=== PATIENT | male | born 1955 | race Caucasian/White ===

== ENCOUNTER 2018-06-02 08:29 | Inpatient (IN) | payer BC ==
[2018-05-29 12:29] LABS: Basophils # (auto) 0 uL; Basophils % (auto) 0.5 % (0.0-2.0); Eosinophils # (auto) 0.2 uL; Eosinophils % (auto) 2.5 % (0.0-7.0); Hematocrit 44.4 % (41.0-53.0); Hemoglobin 15.1 g/dL (13.5-17.5); Lymphocytes # (auto) 1.9 uL; Lymphocytes % (auto) 23.1 % (10.0-50.0); Mean Corpuscular Hemoglobin 32.8 pg (28.0-32.0); Mean Corpuscular Volume 96.5 fL (80.0-100.0); Monocytes # (auto) 0.6 uL; Neutrophils # (auto) 5.4 uL; Neutrophils % (auto) 65.9 % (37.0-80.0); Nucleated Red Blood Cells % 0.1 %; Platelet Count (auto) 267 10^3/uL (140-450); Red Cell Distribution Width 13.1 % (11.8-14.3); White Blood Cell 8.1 10^3/uL (4.4-10.8)
[2018-05-29 12:33] LABS: Urine Bacteria NONE SEEN /hpf (None Seen); Urine Blood Negative /uL (Negative); Urine Mucus FEW (None Seen); Urine Specific Gravity 1.025 (1.001-1.035); Urine WBC 1 /hpf (0 - 3)
[2018-05-29 12:44] LABS: INR 0.96 (0.9-1.15); Prothrombin Time 10.3 sec (9.27-12.13)
[2018-05-29 13:09] LABS: Potassium 3.8 mmol/L (3.5-5.1)
[2018-05-29 13:19] LABS: Albumin 3.9 g/dL (3.4-5.0); BUN/Creatinine Ratio 19.6; Bilirubin, Total 0.4 mg/dL (0.2-1.0); Total Protein 7.5 g/dL (6.4-8.2)
[~2018-06-02] VITALS: Ht 167.6 cm; Wt 85.8 kg
[~2018-06-02 08:29] MED LIST: ASPI81TA27 PO; CARI350T22 PO; CHOL20006 PO; HYDR-531 PO; LACTCAP35 OR; LORA-622 PO; METO25TA62 PO; MONT10TA34 PO; MULTTAB5 OR; NIFE-16 PO; OMEP20TA PO; SIMV-13 PO; SUCR1TAB PO
[2018-06-02] MEDS ORDERED: ceFAZolin 1GM/50ML 100 ML IV ONE (09:46)
[2018-06-02] MEDS ORDERED: TETRACAINE 1% INJ 2 ML VIAL IJ ONE (10:39)
[2018-06-02] MEDS ORDERED: MIDAZOLAM HCL 1MG/1ML-2 ML VIAL ONE ×2 (10:40→10:57)
[2018-06-02] MEDS ORDERED: fentaNYL CITRATE 5 ML ONE (10:40)
[2018-06-02] MEDS ORDERED: PROPOFOL 10 MG/ML 20 ML IV ONE (10:42)
[2018-06-02] MEDS ORDERED: DEXAMETHASONE SOD PHOS 10MG/1ML VIAL INJ ONE (10:42)
[2018-06-02] MEDS ORDERED: BUPIVACAINE HCL 50 ML ONE (10:45)
[2018-06-02] MEDS ORDERED: LIDOCAINE W/ EPINEPHRINE 2% INJ 20ML VIAL ONE (10:45)
[2018-06-02] MEDS ORDERED: PHENYLEPHRINE HCL 10 MG/ML VL ONE (11:38)
[2018-06-02] MEDS ORDERED: HYDROmorphone HCL 2 MG/ML VL ONE (14:11)
[2018-06-02] MEDS ORDERED: NITROGLYCERIN 0.4 MG SL TAB SL PRN (14:15)
[2018-06-02] MEDS: HYDROmorphone HCL 2 MG/ML VL IV PRN ×7 (14:15→21:38)
[2018-06-02] MEDS ORDERED: MORPHINE SULFATE 4 MG/ML SYR/VIAL IV PRN ×2 (14:15)
[2018-06-02] MEDS ORDERED: MIDAZOLAM HCL 1MG/1ML-2 ML VIAL IV PRN (14:15)
[2018-06-02] MEDS ORDERED: LABETALOL HCL 5 MG/ML 4ML SYRINGE IV PRN (14:15)
[2018-06-02] MEDS ORDERED: ACETAMINOPHEN 325 MG TAB PO PRN (14:15)
[2018-06-02] MEDS ORDERED: KETOROLAC TROMETH 30 MG/ML 1ML VIAL IV ONE (14:15)
[2018-06-02] MEDS ORDERED: ONDANSETRON HCL 4 MG/2 ML VIAL IV ONE (14:15)
[2018-06-02] MEDS ORDERED: ePHEDrine SULFATE 50 MG/ML AMP IV PRN (14:15)
[2018-06-02] MEDS ORDERED: fentaNYL CITRATE 100 MCG/2 ML VL IV ONE (15:00)
[2018-06-02 15:50] VITALS: BP 149/84
[2018-06-02] MEDS: LACTATED RINGER'S 1,000 ML IV SCH (16:00)
[2018-06-02] MEDS ORDERED: MORPHINE SULFATE 4 MG/ML SYR/VIAL IV ONE (16:00)
[2018-06-02] MEDS: ceFAZolin 1GM/50ML 50 ML IV SCH ×2 (16:16→20:49)
[2018-06-02] MEDS ORDERED: cloNIDine HCL 0.1 MG TAB PO PRN (16:45)
[2018-06-02 16:48] VITALS: BP 151/87
[2018-06-02] MEDS: HYDROcodone-ACET 10/325MG TAB PO PRN (20:49)
[2018-06-02] MEDS: DOCUSATE SOD 100 MG CAP PO SCH (21:37)
[2018-06-02 22:00] VITALS: BP 136/86
[2018-06-02] MEDS: SODIUM CHLOR 0.9% PF (SALINE LOCK) 10ML VIAL/SYR IV SCH (22:00)
[2018-06-02] MEDS: oxyCODONE ER 10 MG TAB PO SCH (22:33)
[2018-06-03] VITALS (7 sets, daily range): BP systolic 129–152; BP diastolic 74–94
[2018-06-03] MEDS ORDERED: CARISOPRODOL 350 MG TAB PO SCH (00:15)
[2018-06-03] MEDS: TEMAZEPAM 15 MG CAP PO PRN ×2 (00:24→22:23)
[2018-06-03] MEDS: HYDROmorphone HCL 2 MG/ML VL IV PRN ×6 (01:27→18:30)
[2018-06-03] MEDS: ceFAZolin 1GM/50ML 50 ML IV SCH (03:30)
[2018-06-03 05:41] LABS: Hemoglobin 11.9 g/dL (13.5-17.5)
[2018-06-03] MEDS: SODIUM CHLOR 0.9% PF (SALINE LOCK) 10ML VIAL/SYR IV SCH ×3 (06:05→22:26)
[2018-06-03] MEDS: ENOXAPARIN SOD 40 MG/0.4 ML SYRINGE SC SCH (09:14)
[2018-06-03] MEDS: DOCUSATE SOD 100 MG CAP PO SCH ×2 (09:14→22:23)
[2018-06-03] MEDS: oxyCODONE ER 10 MG TAB PO SCH ×2 (09:14→22:23)
[2018-06-03] MEDS: LACTATED RINGER'S 1,000 ML IV SCH (10:11)
[2018-06-03] MEDS ORDERED: LORATADINE 10 MG TAB PO ONE (11:00)
[2018-06-03] MEDS ORDERED: METOPROLOL SUCCINATE XL 50 MG TAB PO ONE (11:00)
[2018-06-03] MEDS: CARISOPRODOL 350 MG TAB PO PRN ×2 (12:04→19:31)
[2018-06-03] MEDS: HYDROcodone-ACET 10/325MG TAB PO PRN (16:41)
[2018-06-03] MEDS: MONTELUKAST SODIUM 10 MG TAB PO SCH (22:23)
[2018-06-04] MEDS: HYDROmorphone HCL 2 MG/ML VL IV PRN ×6 (00:07→20:58)
[2018-06-04 05:07] VITALS: BP 134/90
[2018-06-04] MEDS: LACTATED RINGER'S 1,000 ML IV SCH (06:27)
[2018-06-04] MEDS: SODIUM CHLOR 0.9% PF (SALINE LOCK) 10ML VIAL/SYR IV SCH ×3 (06:27→22:17)
[2018-06-04] MEDS: CARISOPRODOL 350 MG TAB PO PRN ×3 (06:55→18:55)
[2018-06-04 07:46] LABS: Hematocrit 36.3 % (41.0-53.0); Hemoglobin 12.2 g/dL (13.5-17.5)
[2018-06-04 09:01] VITALS: BP 156/69
[2018-06-04] MEDS: DOCUSATE SOD 100 MG CAP PO SCH ×2 (09:39→22:17)
[2018-06-04] MEDS: ENOXAPARIN SOD 40 MG/0.4 ML SYRINGE SC SCH (09:43)
[2018-06-04] MEDS: PANTOPRAZOLE 40 MG TAB PO SCH (09:43)
[2018-06-04] MEDS: oxyCODONE ER 10 MG TAB PO SCH ×2 (09:43→22:00)
[2018-06-04] MEDS: LORATADINE 10 MG TAB PO SCH (09:43)
[2018-06-04] MEDS ORDERED: [UNRECOGNIZED DRUG - CODE] PO (09:51)
[2018-06-04] MEDS ORDERED: METOPROLOL SUCCINATE XL 50 MG TAB PO SCH (10:00)
[2018-06-04 13:00] VITALS: BP 140/77
[2018-06-04 16:40] VITALS: BP 140/83
[2018-06-04 22:00] VITALS: BP 119/69
[2018-06-04] MEDS: HYDROcodone-ACET 10/325MG TAB PO PRN (22:18)
[2018-06-04] MEDS: MONTELUKAST SODIUM 10 MG TAB PO SCH (22:18)
[2018-06-05] MEDS: HYDROmorphone HCL 2 MG/ML VL IV PRN ×7 (00:09→23:15)
[2018-06-05] MEDS: TEMAZEPAM 15 MG CAP PO PRN (01:39)
[2018-06-05] MEDS: LACTATED RINGER'S 1,000 ML IV SCH ×2 (02:08→22:11)
[2018-06-05 05:00] VITALS: BP 120/77
[2018-06-05] MEDS: SODIUM CHLOR 0.9% PF (SALINE LOCK) 10ML VIAL/SYR IV SCH ×3 (05:03→22:03)
[2018-06-05 06:24] LABS: Basophils # (auto) 0 uL; Basophils % (auto) 0.3 % (0.0-2.0); Eosinophils # (auto) 0.1 uL; Eosinophils % (auto) 0.9 % (0.0-7.0); Hematocrit 32.8 % (41.0-53.0); Hemoglobin 11.2 g/dL (13.5-17.5); Lymphocytes # (auto) 1.8 uL; Lymphocytes % (auto) 13.6 % (10.0-50.0); Mean Corpuscular Hemoglobin 33.2 pg (28.0-32.0); Mean Corpuscular Hgb Conc. 34.3 g/dL (32.0-36.0); Mean Corpuscular Volume 96.9 fL (80.0-100.0); Monocytes # (auto) 1.5 uL; Monocytes % (auto) 10.9 % (0.0-12.0); Neutrophils % (auto) 74.3 % (37.0-80.0); Platelet Count (auto) 196 10^3/uL (140-450); Red Blood Cells 3.38 10^6/uL (4.5-5.90); Red Cell Distribution Width 12.7 % (11.8-14.3); White Blood Cell 13.5 10^3/uL (4.4-10.8)
[2018-06-05 06:38] LABS: Albumin 2.6 g/dL (3.4-5.0); BUN/Creatinine Ratio 16.1; Calcium 8.1 mg/dL (8.5-10.1); Potassium 4.1 mmol/L (3.5-5.1)
[2018-06-05 06:41] LABS: Bilirubin, Total 0.5 mg/dL (0.2-1.0); Total Protein 6.3 g/dL (6.4-8.2)
[2018-06-05 09:00] VITALS: BP 139/75
[2018-06-05] MEDS: METOPROLOL SUCCINATE XL 50 MG TAB PO SCH (10:00)
[2018-06-05] MEDS: DOCUSATE SOD 100 MG CAP PO SCH ×2 (10:43→22:01)
[2018-06-05] MEDS: PANTOPRAZOLE 40 MG TAB PO SCH (10:43)
[2018-06-05] MEDS: LORATADINE 10 MG TAB PO SCH (10:43)
[2018-06-05] MEDS: ENOXAPARIN SOD 40 MG/0.4 ML SYRINGE SC SCH (10:44)
[2018-06-05] MEDS: oxyCODONE ER 10 MG TAB PO SCH ×2 (10:44→22:01)
[2018-06-05 13:00] VITALS: BP 153/78
[2018-06-05] MEDS: traMADol HCL 50 MG TAB PO PRN (15:07)
[2018-06-05 16:35] VITALS: BP 126/72
[2018-06-05 22:00] VITALS: BP 124/72
[2018-06-05] MEDS: MONTELUKAST SODIUM 10 MG TAB PO SCH (22:01)
[2018-06-05 23:18] VITALS: BP 126/72
[2018-06-06] MEDS: TEMAZEPAM 15 MG CAP PO PRN ×2 (00:51→22:00)
[2018-06-06] MEDS: CARISOPRODOL 350 MG TAB PO PRN ×2 (00:51→20:34)
[2018-06-06] MEDS: HYDROmorphone HCL 2 MG/ML VL IV PRN ×5 (04:12→18:43)
[2018-06-06 05:00] VITALS: BP 135/71
[2018-06-06] MEDS: SODIUM CHLOR 0.9% PF (SALINE LOCK) 10ML VIAL/SYR IV SCH ×3 (06:18→22:00)
[2018-06-06 07:53] LABS: Hematocrit 32.9 % (41.0-53.0); Hemoglobin 11.1 g/dL (13.5-17.5)
[2018-06-06 08:00] VITALS: BP 122/75
[2018-06-06] MEDS: DOCUSATE SOD 100 MG CAP PO SCH ×2 (08:54→22:00)
[2018-06-06] MEDS: ENOXAPARIN SOD 40 MG/0.4 ML SYRINGE SC SCH (08:54)
[2018-06-06] MEDS: LORATADINE 10 MG TAB PO SCH (08:55)
[2018-06-06] MEDS: oxyCODONE ER 10 MG TAB PO SCH ×2 (08:55→22:00)
[2018-06-06] MEDS: METOPROLOL SUCCINATE XL 50 MG TAB PO SCH (08:56)
[2018-06-06] MEDS: PANTOPRAZOLE 40 MG TAB PO SCH (08:56)
[2018-06-06 09:00] VITALS: BP 137/71
[2018-06-06 13:00] VITALS: BP 129/77
[2018-06-06 17:00] VITALS: BP 126/74
[2018-06-06 22:00] VITALS: BP 135/73
[2018-06-06] MEDS: MONTELUKAST SODIUM 10 MG TAB PO SCH (22:00)
[2018-06-07] MEDS: HYDROmorphone HCL 2 MG/ML VL IV PRN ×4 (00:03→21:57)
[2018-06-07] MEDS: HYDROcodone-ACET 10/325MG TAB PO PRN (01:46)
[2018-06-07 05:00] VITALS: BP 137/75
[2018-06-07] MEDS: SODIUM CHLOR 0.9% PF (SALINE LOCK) 10ML VIAL/SYR IV SCH ×3 (06:00→21:57)
[2018-06-07 08:00] VITALS: BP 122/75
[2018-06-07] MEDS: DOCUSATE SOD 100 MG CAP PO SCH ×2 (08:57→21:58)
[2018-06-07] MEDS: LORATADINE 10 MG TAB PO SCH (08:57)
[2018-06-07] MEDS: oxyCODONE ER 10 MG TAB PO SCH ×3 (08:57→22:04)
[2018-06-07] MEDS: PANTOPRAZOLE 40 MG TAB PO SCH (08:57)
[2018-06-07] MEDS: ENOXAPARIN SOD 40 MG/0.4 ML SYRINGE SC SCH (08:57)
[2018-06-07] MEDS: METOPROLOL SUCCINATE XL 50 MG TAB PO SCH (08:58)
[2018-06-07 09:00] VITALS: BP_SYST 134; BP_SYST 150; BP_DIAS 80; BP_DIAS 86
[2018-06-07 13:00] VITALS: BP 123/71
[2018-06-07 17:00] VITALS: BP 125/82
[2018-06-07 21:53] VITALS: BP 127/72
[2018-06-07] MEDS ORDERED: METOPROLOL SUCCINATE XL 50 MG TAB PO SCH (22:00)
[2018-06-07] MEDS: MONTELUKAST SODIUM 10 MG TAB PO SCH (22:04)
[2018-06-07] MEDS: traMADol HCL 50 MG TAB PO PRN (23:52)
[2018-06-08] MEDS: TEMAZEPAM 15 MG CAP PO PRN (01:12)
[2018-06-08] MEDS: HYDROcodone-ACET 10/325MG TAB PO PRN ×2 (04:45→09:21)
[2018-06-08 05:06] VITALS: BP 143/84
[2018-06-08] MEDS: SODIUM CHLOR 0.9% PF (SALINE LOCK) 10ML VIAL/SYR IV SCH ×2 (08:10→14:00)
[2018-06-08 09:00] VITALS: BP 142/76
[2018-06-08] MEDS: oxyCODONE ER 10 MG TAB PO SCH (10:00)
[2018-06-08] MEDS: PANTOPRAZOLE 40 MG TAB PO SCH (10:41)
[2018-06-08] MEDS: LORATADINE 10 MG TAB PO SCH (10:41)
[2018-06-08] MEDS: DOCUSATE SOD 100 MG CAP PO SCH (10:41)
[2018-06-08] MEDS: ENOXAPARIN SOD 40 MG/0.4 ML SYRINGE SC SCH (10:43)
[2018-06-08] MEDS: CARISOPRODOL 350 MG TAB PO PRN (11:00)
[2018-06-08] MEDS: traMADol HCL 50 MG TAB PO PRN (12:05)
[2018-06-08 13:00] VITALS: BP 139/68
[2018-06-08 17:00] VITALS: BP 140/74
== END 2018-06-08 17:55 | disposition home or self-care (01) | DRG 470 ==
LOC: SUR 08:29 → TELE-EAST 08:30 → EAST 06-05 21:30
PROVIDERS: ADMIT Orthopaedic Surgery; ATTEND Internal Medicine
PROC: 0MBL0ZZ Excision of Right Hip Bursa and Ligament, Open Approach (ICD-10-PCS; 2018-06-02)
PROC: 0SR90JA Replacement of Right Hip Joint with Synthetic Substitute, Uncemented, Open Approach (ICD-10-PCS; principal; 2018-06-02 10:48)
PROC: 5A09357 Assistance with Respiratory Ventilation, Less than 24 Consecutive Hours, Continuous Positive Airway Pressure (ICD-10-PCS; 2018-06-03)
PROC: 5A09357 Assistance with Respiratory Ventilation, Less than 24 Consecutive Hours, Continuous Positive Airway Pressure (ICD-10-PCS; 2018-06-05)
DX: M16.11 Unilateral primary osteoarthritis, right hip (principal); M87.851 Other osteonecrosis, right femur; M70.61 Trochanteric bursitis, right hip; I10 Essential (primary) hypertension; E78.5 Hyperlipidemia, unspecified; G89.29 Other chronic pain; M21.151 Varus deformity, not elsewhere classified, right hip; M21.851 Other specified acquired deformities of right thigh; E66.9 Obesity, unspecified; Z68.30 Body mass index [BMI] 30.0-30.9, adult
CPT/HCPCS: 36415; 73501; 80053; 81001; 85014; 85018; 85025; 85610; 85730; 86850; 86900; 86901; 94660; 97110; 97116; 97163; 97530; A6257; C1776; G0378; J0690; J1100; J2250; J2704; J3490